=== PATIENT | male | born 1955 | race Caucasian/White ===

== ENCOUNTER 2018-11-27 02:50 | Emergency (ER) | payer OTHER ==
[~2018-11-27] VITALS: Ht 177.8 cm; Wt 85.3 kg
[2018-11-27 02:52] VITALS: Ht 177.8 cm; Wt 85.3 kg
[2018-11-27] MEDS ORDERED: LIPITOR80 MG PO (02:53)
[2018-11-27] MEDS ORDERED: COREG 3.1253.125 MG PO (02:53)
[2018-11-27 03:26] LABS: BASOPHILS 0.6 % (0-2); EOSINOPHILS 5.3 % (0-7); HEMATOCRIT 45.8 % (42.0-54.0); HEMOGLOBIN 15.3 g/dL (13.5-17.5); IMMATURE GRANULOCYTES 0.2 % (0-5); MCH 26.1 pg (26.0-34.0); MCHC 33.4 g/dL (31.0-37.0); MCV 78.2 fL (80.0-100.0); MEAN PLATELET VOLUME 8.8 fL (7.4-10.4); MONOCYTES 9.9 % (2-11); PLATELET COUNT 213 10x3/uL (130-400); RBC 5.86 10x6/uL (4.20-6.10); RDW 15.4 % (11.5-14.5); WBC 6.6 10x3/uL (4.8-10.8)
[2018-11-27 03:33] LABS: INR 1.03 (0.85-1.17)
[2018-11-27 03:34] LABS: APTT 31.6 SECONDS (22.8-39.4)
[2018-11-27 03:38] LABS: ALBUMIN 4.1 g/dL (3.4-5.0); ALKALINE PHOSPHATASE 105 U/L (46-116); ALT (SGPT) 43 U/L (10-68); CALC OSMOLALITY 273 mosm/kg (275-300); CALCIUM 9.1 mg/dL (8.5-10.1); CARBON DIOXIDE 27.2 mmol/L (21.0-32.0); CHLORIDE - SERUM 103 mmol/L (98-107); CREATININE - SERUM 0.9 mg/dL (0.6-1.3); GLUCOSE 93 mg/dL (74-106); POTASSIUM - SERUM 4.2 mmol/L (3.5-5.1); PROTEIN - SERUM 7.3 g/dL (6.4-8.2); SODIUM 138 mmol/L (136-145); UREA NITROGEN 8 mg/dL (7-18); eGFR NON AFRICAN AMERICAN > 90 mL/min (90-120)
[2018-11-27 03:49] LABS: CKMB 1.1 U/L (0.0-3.6); CREATINE KINASE 140 UL (21-232); MAGNESIUM - SERUM 2.1 mg/dL (1.8-2.4)
[2018-11-27 03:51] LABS: TROPONIN-I < 0.017 ng/mL (0.000-0.060)
[2018-11-27 04:26] VITALS: BP 164/92
== END 2018-11-27 04:26 | disposition home or self-care (01) ==
LOC: D.ER 02:50
PROVIDERS: Family Medicine
DX: F41.9 Anxiety disorder, unspecified (principal); I10 Essential (primary) hypertension

== ENCOUNTER 2020-06-06 13:11 | Observation (INO) | payer MEDICAID ==
[~2020-06-06] VITALS: Ht 177.8 cm; Wt 90.9 kg
--- NOTE | ~2020-06-06 | HEMODYNAMI ---
PATIENT:MO ROSARIO MEDICAL RECORD: [id number] : 57 [facility] DATE: 06/06/20 Generatedon:110:52 Patient name: MO ROSARIO Patient #: [id number] SSN: : 1 Date of study: 06/07/2020 Page: Of Hemodynamic Procedure Report Patient Data Patient Demographics Procedure consent was obtained First Name: MO Gender: Male Last Name: MARLENE : 1955 Middle Initial: M Age: 65 year(s) Patient #: [id number] Race: Additional ID: [id number] Contact details [address]: [address] [place] [address] State: [place] City: [place] Zip code: [address] Past Medical History Allergies: No known allergies Admission Admission Data Admission Date: 06/06/2020 Admission Time: 17:22 Admit Source: Other Room #: D.2106 Procedure Procedure Types Cath Procedure Diagnostic Procedure LHC LHC w/Coronaries w/Grafts Sedation Charges Moderate Sedation 25-39 minutes Procedure Description Procedure Date Procedure Date: 06/07/2020 Procedure Start Time: 10:31 Procedure End Time: 10:50 Procedure Staff Name Function Nicola Garcia MD Performing Physician Silke Lainez RT Monitor Génesis Haywood RT Scrub Jermain Juarez RN Nurse Procedure Data Cath Procedure Fluoroscopy Diagnostic fluoroscopy Total fluoroscopy Time: 3.6 time: 3.6 min min Diagnostic fluoroscopy Total fluoroscopy dose: 577 dose: 577 mGy mGy Contrast Material Contrast Material Type Amount (ml) Isovue 300 95 Entry Location Entry Primary Successful Side Size Upsize Upsize Entry Closure Succes sful Closure Location (Fr) 1 (Fr) 2 (Fr) Remarks Device Remarks Femoral Right 5 Fr Exoseal artery Estimated blood loss: 5 ml Diagnostic catheters Device Type Used For End Catheter Placement MULTIPACK JL 4.0 5Fr Left Coronary catheter Angiography DIAGNOSTIC AR MOD 5Fr Multi-vessel Catheter ([id number]) Angiography DIAGNOSTIC LCB 5Fr Multi-vessel catheter ([id number]) Angiography MULTIPACK Pigtail 5 Fr LV Angiography catheter DIAGNOSTIC IM 5Fr Multi-vessel catheter ([id number]) Angiography Procedure Complications No complications Procedure Medications Medication Administration Route Dosage 0.9% NaCl I.V. 100 ml/hr Oxygen etCO2 Nasal cannula 2 l/min Heparin Flush Bag added to field 2 bags (1000units/500ml NS) Lidocaine 2% added to field 20 Versed I.V. 1 mg Fentanyl I.V. 100 mcg Versed I.V. 1 mg Versed I.V. 2 mg Hemodynamics Rest Heart Rate: 65 (bpm) Pressure Samples Time Site Value (mmHg) Purpose Heart Use Rate(bpm) 10:41 LV 113/13,37 Snapshot 74 Gradients Valve Time Site Site Mean SEP/DFP Peak To Heart Use 1 2 (mmHg) (sec/min) Peak Rate (mmHg) (bpm) Aortic 10:42 LV AO 71 Snapshots Pre Cath Intra NCS Post Cath Vital Signs Time Heart Resp SPO2 etCO2 NIBP (mmHg) Rhythm Pain Sedation Rate (ipm) (%) (mmHg) Status Level (bpm) 10:15:59 67 19 99 27.1 137/80(111) NSR 0 (11) 10(A) , No pain 10:20:13 67 18 96 30.9 127/71(109) NSR 0 (11) 10(A) , No pain 10:24:23 68 17 96 30.1 123/72(95) NSR 0 (11) 10(A) , No pain 10:28:31 66 17 96 30.9 121/73(94) NSR 0 (11) 10(A) , No pain 10:32:38 67 16 95 31.7 116/72(94) NSR 0 (11) 10(A) , No pain 10:36:46 66 18 96 33.1 116/70(90) NSR 0 (11) 10(A) , No pain 10:40:54 71 17 95 32.4 115/70(92) NSR 0 (11) 10(A) , No pain 10:45:02 70 17 96 33.9 113/68(89) NSR 0 (11) 10(A) , No pain 10:49:06 66 19 98 32.4 118/73(93) NSR 0 (11) 10(A) , No pain Medications Time Medication Route Dose Verified Delivered Reason Notes Eff ectiveness by by 10:17:27 0.9% NaCl I.V. 100 Jermain Jermain Per ml/hr Ann Juarez physician RN RN 10:17:37 Oxygen etCO2 2 Jermain Jermain for low 02 Nasal l/min Lorigan Lorigan sats cannula RN RN 10:17:49 Heparin Flush added 2 Jermain Jermain used for Bag to bags Lorigan Lorigan procedure (1000units/500ml field RN RN NS) 10:17:58 Lidocaine 2% added 20ml Jermain Jermain for local to vial Lorigan Lorigan anesthetic field RN RN 10:18:06 Versed I.V. 1 mg Jermain Jermain for Lorigan Lorigan sedation RN RN 10:18:15 Fentanyl I.V. 100 Jermain Jermain for mcg Lorigan Lorigan sedation RN RN 10:27:56 Versed I.V. 1 mg Jermain Jermain for Lorigan Lorigan sedation RN RN 10:30:19 Versed I.V. 2 mg Jermain Jermain for Lorigan Lorigan sedation RN clerical receptionist Log Time Note 9:34:23 Informed consent obtained and on chart 9:41:01 Diagnostic Cath Status : Elective 9:55:06 Admit Source: Other 9:55:09 ACC Patient presents with Unstable Angina CCS Anginal Class 2--Slight limitation of ordinary activity. 9:55:12 Procedure Status Urgent Heart Cath (IP). 9:55:14 Time tracking: Regular hours (M-F 7:00 - 5:00) 9:55:19 Plan of Care:Hemodynamics will remain stable., Cardiac rhythm will remain stable., Comfort level will be maintained., Respiratory function will remain adequate., Patient/ family verbilizes understanding of procedure., Procedure tolerated without complication., Recovers from procedure without complications.. 9:55:30 H&P Date Dictated: 06/06/2020 Within 30 days and on chart.. 9:55:35 Jermain Juarez RN sent for patient. Start room use. 10:04:28 Patient received from Med II to CCL 2 Alert and oriented. Tansferred to table in Supine position. 10:04:29 Warm blankets applied, and alisa hugger turned on for patient comfort. 10:04:30 Correct patient and procedure confirmed by team. 10:04:30 ECG and BP/O2 sat monitors applied to patient. 10:14:49 Baseline sample Acquired. 10:14:49 Vital chart was started 10:14:52 Rhythm: sinus rhythm 10::54 Full Disclosure recording started 10:14:54 Pre-procedure instructions explained to patient. 10:14:55 Pre-op teaching completed and patient verbalized understanding. 10:14:56 Family unavailable. 10:14:59 Patient NPO since Midnight. 10:15:00 Is the patient allergic to Iodine/contrast media? No. 10:15:03 Was the patient premedicated? Yes 10:15:04 Is patient on blood thinner?Yes 10:15:07 ACC The patient was administered the following blood thiners within the last 24 hours: ACCLovenox 10:15:09 Patient diabetic? No. 10:15:11 Previous problem with sedation/anesthesia? No ? 10:15:13 Snore? Yes 10:15:14 Sleep apnea? No 10:15:15 Deviated septum? No 10:15:16 Opens mouth fully? Yes 10:15:17 Sticks out tongue? Yes 10:15:24 Airway obstruction? Yes copd asthma 10:15:29 Dentures? Yes in tight 10:15:32 Pre procedure: right dorsailis pedis pulse 2+ Normal; easily identifiable; not easily obliterated 10:15:33 Pre procedure: left dorsailis pedis pulse 2+ Normal; easily identifiable; not easily obliterated 10:15:35 Patient pain scale 0/10 ?. 10:15:41 IV patent on arrival in left forearm with 0.9% NaCl at O. 10:15:43 Lab results completed and on chart. 10:15:48 Right groin area was prepped with chlora-prep and draped in sterile fashion 10:15:48 Alarms reviewed by R. N. 10:15:49 Sharps counted by scrub and verified by R.N. 10:15:49 Physician arrived 10:15:50 --------ALL STOP TIME OUT------ 10:15:50 Final Timeout: patient, procedure, and site verified with staff and physician. All members of the team are in agreement. 10:15:52 Right groin site verified by team. 10:15:57 Fire Safety Assessment: A--An alcohol-based skin anteseptic being used preoperatively., C--Open oxygen or nitrous oxide is being used., D--An ESU, laser, or fiber-optic light is being used. 10:15:59 Physical assessment completed. ASA score P 2 - A patient with mild systemic disease as per Nicola Garcia MD. 10:16:45 1) 90+ Normal kidney functon but urine findings or structural abnormalities or genetic trait point to kidney disease. 10:16:52 Maximum allowable contrast dose (3.7 X eGFR X 0.75)250 ml. 10:17:15 Sedation plan: IV Moderate Sedation Medication:Versed, Fentanyl 10:17:19 Use device set Femoral Dx 10:17:20 ACIST Syringe (12851) opened to sterile field. 10:17:20 Bag Decanter (2002S) opened to sterile field. 10:17:21 Medline Cath Pack ([id number]) opened to sterile field. 10:17:23 ACIST Hand Control (26535) opened to sterile field. 10:17:23 ACIST Manifold (74146) opened to sterile field. 10:17:24 DIAGNOSTIC Multipack 5Fr catheter set ([id number]) opened to sterile field. 10:17:27 0.9% NaCl 100 ml/hr I.V. was administered by Jermain Juarez RN; Per physician; Verbal order read back and verified. 10:17:37 Oxygen 2 l/min etCO2 Nasal cannula was administered by Jermain Juarez RN; for low 02 sats; Verbal order read back and verified. 10:17:47 SHEATH 5FR [place] (BLC066) opened to sterile field. 10:17:47 EMERALD Guide Wire (912-548) opened to sterile field. 10:17:49 Heparin Flush Bag (1000units/500ml NS) 2 bags added to field was administered by Jermain Juarez RN; used for procedure; Verbal order read back and verified. 10:17:51 Tegaderm 4 x 4 (1626W) opened to sterile field. 10:17:58 Lidocaine 2% 20ml vial added to field was administered by Jermain Juarez RN; for local anesthetic; Verbal order read back and verified. 10:18:06 Versed 1 mg I.V. was administered by Jermain Juarez RN; for sedation; Verbal order read back and verified. 10:18:15 Fentanyl 100 mcg I.V. was administered by Jermain Juarez RN; for sedation; Verbal order read back and verified. 10:27:56 Versed 1 mg I.V. was administered by Jermain Juarez RN; for sedation; Verbal order read back and verified. 10:29:09 Procedure started. 10:30:19 Versed 2 mg I.V. was administered by Jermain Juarez RN; for sedation; Verbal order read back and verified. 10:31:25 Local anesthetic to right femoral artery with Lidocaine 2% by Nicola Garcia MD.INITIAL ACCESS ONLY 10:32:53 A 5 Fr sheath was inserted into the Right Femoral artery 10:32:58 A MULTIPACK JL 4.0 5Fr catheter was advanced over the wire and used for Left Coronary Angiography. 10:34:14 LCA angiography performed. 10:34:17 Injector settings: Ml/sec: 3, Volume: 6, 10:35:36 Catheter removed. 10:35:56 A DIAGNOSTIC AR MOD 5Fr Catheter (036011E) was advanced over the wire and used for Multi-vessel Angiography. 10:36:59 RCA angiography performed. 10:37:02 Injector settings: Ml/sec: 3, Volume: 6, 10:37:47 Catheter removed. 10:37:58 A DIAGNOSTIC LCB 5Fr catheter ([id number]) was advanced over the wire and used for Multi-vessel Angiography. 10:39:20 SVG to Circ angiography performed. 10:40:14 Injector settings: Ml/sec: 3, Volume: 6, 10:41:31 Catheter removed. 10:41:40 A MULTIPACK Pigtail 5 Fr catheter was advanced over the wire and used for LV Angiography. 10:42:01 LV hemodynamics recorded. 10:42:04 LV gram done using MAI 10:42:06 Injector settings: Ml/sec: 5, Volume: 15, 10:42:21 EF : 60 % 10:42:41 Catheter removed. 10:43:35 A DIAGNOSTIC IM 5Fr catheter ([id number]) was advanced over the wire and used for Multi-vessel Angiography. 10:44:26 MONAHAN to LAD angiography performed. 10:44:54 Injector settings: Ml/sec: 3, Volume: 6, 10:45:23 Catheter removed. 10:46:44 EXOSEAL 5Fr (EX500) opened to sterile field. 10:47:01 Sheath removed intact; hemostasis achieved with Exoseal to the Right Femoral artery. 10:47:03 Procedure ended.(Physican Out) 10:47:41 Fluoroscopy time 03.60 minutes. 10:47:52 Flurop Dose total: 577 10:47:52 Fluoroscopy dose: 577 mGy 10:47:58 Dose Area Product 55483 mGy/cm. 10:48:02 Contrast amount:Isovue 300 95ml. 10:48:03 Maximum allowable dose exceeded? No. 10:48:04 Sharps counted by scrub and verified by R.N. 10:48:07 Insertion/operative site no bleeding no hematoma. 10:48:09 Post-op/insertion site Right Femoral artery dressed using a 4 x 4 and Tegaderm. 10:48:12 Post Procedure Pulses reassessed and unchanged 10:48:15 Post procedure rhythm: unchanged. 10:48:43 Estimated blood loss: 5 ml 10:48:44 Post procedure instruction explained to patient.Patient verbalizes understanding. 10:48:44 Patient needs reinforcement of post procedure teaching. 10:48:53 Procedure type changed to Cath procedure, Diagnostic procedure, LHC, C w/Coronaries w/Grafts, Sedation Charges, Moderate Sedation 25-39 minutes 10:49:15 Procedure and supply charges have been captured, reviewed, submitted and are correct. 10:49:20 Procedure Complication : No complications 10:49:26 [facility] Findings: MVD- MD will discuss options w/ pt 10:49:27 Operative report dictated upon procedure completion. 10:49:28 See physician's report for complete and final results. 10:49:30 Report given to Med II. 10:50:20 Patient transfered to Med II with Stretcher. 10:50:22 Procedure ended. 10:50:22 Full Disclosure recording stopped 10:50:28 End room use (Document Last) 10:51:39 End room use (Document Last) 10:52:03 End room use (Document Last) 10:52:27 Vital chart was stopped Device Usage Item Name Manufacture Quantity Catalog Hospital Part Current Minimal L ot# / Number Charge Number Stock Stock Serial# Code [facility] 1 80037 564370 829958 158029 20 Syringe Medical (73974) Systems Inc Bag Microtek 1 2001S 967262 51208 657221 5 Decanter Medical Inc. () Medline Medline 1 [id number] 962789 94246 329470 5 Cath Pack ([id number]) ACIST Hand Acist 1 85921 616474 849661 990842 5 Control Medical (67786) Systems Inc ACIST Acist 1 82500 367130 845055 905076 5 Manifold Medical (29080) Systems Inc DIAGNOSTIC Cardinal 1 [id number] 712678 75257 823075 30 Multipack ProQuo 5Fr catheter set ([id number]) SHEATH 5FR Terumo 1 [id number] 690611 689270 724035 5 [place] (HSR249) EMERALD Cardinal 1 502-455 609183 234983 844757 5 Guide Wire [facility] (502455) Tegaderm 4 3M 1 1626W 576528 162198 658295 5 x 4 (1626W) MULTIPACK Cardinal 1 559032 5 JL 4.0 5Fr Health catheter DIAGNOSTIC Cardinal 1 [id number] 082262 474264 830766 15 AR MOD 5Fr Health Catheter (331865C) DIAGNOSTIC Cardinal 1 [id number] 721904 773885 041750 5 LCB 5Fr Health catheter (837972Y) MULTIPACK Cardinal 1 436696 5 Pigtail 5 Health Fr catheter DIAGNOSTIC Cardinal 1 [id number] 913095 437551 016135 5 IM 5Fr Health catheter (951253C) EXOSEAL 5Fr Cardinal 1 EX500 893934 116235 248010 10 (EX500) Health Signature Audit [place] Stage Time Signature Unsigned Intra-Procedure 06/07/2020 Silke Lainez 10:51:39 AM RT(R) Intra-Procedure 06/07/2020 Jermain 10:52:03 AM Ann PINA Intra-Procedure 06/07/2020 Nicola Garcia MD 10:52:25 AM Signatures Performing Physician : Signature : Nicola Garcia MD Date : Time : Monitor : Silke Migel RT Signature : Date : Time : Nurse : Jermain Lorigan Signature : RN Date : Time : [address] [place] [address]
[~2020-06-06 13:11] MED LIST: CARAFATE1 G/10 ML PO; CHRONULAC30 ML PO; COREG 3.1253.125 MG PO; LIPITOR80 MG PO; PROTONIX40 MG PO
[2020-06-06] MEDS ORDERED: SINGULAIR5 MG PO (13:20)
[2020-06-06 14:10] LABS: CALC OSMOLALITY 274 mosm/kg (275-300); CARBON DIOXIDE 27.5 mmol/L (21.0-32.0); CHLORIDE - SERUM 104 mmol/L (98-107); CREATININE - SERUM 1.1 mg/dL (0.6-1.3); GLUCOSE 106 mg/dL (74-106); POTASSIUM - SERUM 4.4 mmol/L (3.5-5.1); SODIUM 137 mmol/L (136-145); UREA NITROGEN 15 mg/dL (7-18); eGFR NON AFRICAN AMERICAN 71 mL/min (90-120)
[2020-06-06 14:11] LABS: BASOPHILS 0.7 % (0-2); EOSINOPHILS 7.9 % (0-7); HEMATOCRIT 45.6 % (42.0-54.0); HEMOGLOBIN 14.9 g/dL (13.5-17.5); IMMATURE GRANULOCYTES 0.1 % (0-5); LYMPHOCYTE ABS# 1.99 10x3/uL (1.32-3.57); LYMPHOCYTES 27.6 % (15-50); MCH 27.9 pg (26.0-34.0); MCHC 32.7 g/dL (31.0-37.0); MCV 85.2 fL (80.0-100.0); MEAN PLATELET VOLUME 8.8 fL (7.4-10.4); MONOCYTES 9.2 % (2-11); NEUTROPHIL ABS# 3.93 10x3/uL (1.78-5.38); NEUTROPHILS 54.5 % (40-80); PLATELET COUNT 266 10x3/uL (130-400); RBC 5.35 10x6/uL (4.20-6.10); RDW 13.3 % (11.5-14.5); WBC 7.2 10x3/uL (4.8-10.8)
[2020-06-06 14:25] LABS: APTT 34.5 SECONDS (22.8-39.4); INR 1.11 (0.85-1.17); PROTIME 13.2 SECONDS (11.6-15.0)
[2020-06-06 14:26] LABS: ALBUMIN 3.8 g/dL (3.4-5.0); ALKALINE PHOSPHATASE 108 U/L (30-120); ALT (SGPT) 50 U/L (10-68); CKMB 0.8 U/L (0.0-3.6); CREATINE KINASE 117 UL (21-232); MAGNESIUM - SERUM 2.3 mg/dL (1.8-2.4); PROTEIN - SERUM 7.2 g/dL (6.4-8.2); TROPONIN-I < 0.017 ng/mL (0.000-0.060)
[2020-06-06 16:04] VITALS: BP 128/75
[2020-06-06 18:03] VITALS: BP 137/86
--- NOTE | 2020-06-06 18:49 | NUR ---
PT ARRIVED AT THIS TIME VIA WHEELCHAIR. PT AAOX3, PLEASANT AND ANSWERS QUESTIONS APPROP. RR EVEN NON LABORED. TELE MONITOR APPLIED. PT ORIENTED TO ROOM, CALL LIGHT AND BATHROOM. CLWR.
[2020-06-06] MEDS ORDERED: ALBUTEROL SULF8.5 GM INH (19:22)
[2020-06-06 20:42] VITALS: BP 148/86
[2020-06-06 23:37] LABS: CKMB 0.7 U/L (0.0-3.6); CREATINE KINASE 98 UL (21-232); TROPONIN-I < 0.017 ng/mL (0.000-0.060)
--- NOTE | 2020-06-07 02:36 | NUR ---
I have reviewed this patient and I concur with the Shift Assessment completed by the Licensed Practical Nurse today this shift.
[2020-06-07 04:00] VITALS: BP 130/79
[2020-06-07 04:41] LABS: BASOPHILS 0.6 % (0-2); EOSINOPHILS 8.8 % (0-7); HEMATOCRIT 43.4 % (42.0-54.0); HEMOGLOBIN 14.1 g/dL (13.5-17.5); IMMATURE GRANULOCYTES 0.2 % (0-5); LYMPHOCYTE ABS# 2.37 10x3/uL (1.32-3.57); LYMPHOCYTES 36.5 % (15-50); MCH 27.6 pg (26.0-34.0); MCHC 32.5 g/dL (31.0-37.0); MCV 84.9 fL (80.0-100.0); MONOCYTES 11.1 % (2-11); NEUTROPHIL ABS# 2.78 10x3/uL (1.78-5.38); NEUTROPHILS 42.8 % (40-80); PLATELET COUNT 240 10x3/uL (130-400); RBC 5.11 10x6/uL (4.20-6.10); RDW 13.3 % (11.5-14.5); WBC 6.5 10x3/uL (4.8-10.8)
[2020-06-07 05:06] LABS: ALBUMIN 3.3 g/dL (3.4-5.0); ALKALINE PHOSPHATASE 84 U/L (30-120); ALT (SGPT) 43 U/L (10-68); BILIRUBIN - TOTAL 0.77 mg/dL (0.2-1.3); CALC OSMOLALITY 276 mosm/kg (275-300); CALCIUM 8.4 mg/dL (8.5-10.1); CARBON DIOXIDE 28.8 mmol/L (21.0-32.0); CHLORIDE - SERUM 105 mmol/L (98-107); CKMB 1.4 U/L (0.0-3.6); CREATINE KINASE 150 UL (21-232); CREATININE - SERUM 0.9 mg/dL (0.6-1.3); GLUCOSE 95 mg/dL (74-106); MAGNESIUM - SERUM 2.1 mg/dL (1.8-2.4); PROTEIN - SERUM 6.3 g/dL (6.4-8.2); SODIUM 138 mmol/L (136-145); TROPONIN-I < 0.017 ng/mL (0.000-0.060); UREA NITROGEN 14 mg/dL (7-18); eGFR NON AFRICAN AMERICAN 90 mL/min (90-120)
[2020-06-07 08:16] VITALS: Ht 177.8 cm; Wt 90.9 kg
[2020-06-07 08:32] VITALS: BP 135/78
[2020-06-07 08:53] LABS: CHOL - HDL RATIO 2.7 ratio (2.3-4.9); LDL-HDL RATIO 1.1 ratio (1.5-3.5)
[2020-06-07 11:00] VITALS: BP 126/72
[2020-06-07 11:40] LABS: CKMB 0.5 U/L (0.0-3.6); CREATINE KINASE 81 UL (21-232); TROPONIN-I < 0.017 ng/mL (0.000-0.060)
--- NOTE | 2020-06-07 16:15 | NUR ---
1115- PT BACK TO ROOM FROM BISQUE GRADER, DROWSY/ALERT, CATH SITE TO RIGHT GROIN C/D/I NO HEMATOMA. PPP. CAN WALK IN 2 HOUR PER BISQUE GRADER D/T NO INTERVENTION DONE. VITALS TAKEN Q15MIN. 1430- PT UP TO RESTROOM THEN TO RECLINER AT BEDSIDE. RIGHT GROIN REMAINS UNCHANGED. AWAITING DISCHARGE ORDERS. 1615-REVIEWED DISCHARGE INSTRUCTIONS WITH PT. VERBALIZES UNDERSTANDING.
--- NOTE | 2020-06-07 19:13 | MORECARE ---
CASE MANAGEMENT DISCHARGE SUMMARY PATIENT: MO ROSARIO UNIT: [id number] ADM DATE: 06/06/20 AGE: 65 : 57 SEX: M ROOM/BED: D.2106 AUTHOR: CHAN COOL PHYSICIAN: REFERRING PHYSICIAN: ADELA HARGROVE MD DATE OF SERVICE: 06/07/20 Discharge Plan Patient Name: MO ROSARIO [facility] [place] : 1955 Planned Disposition: Anticipated Discharge Date: Discharge Date: 06/07/2020 Expected LOS: Initial Reviewer: [email or web address] Initial Review Date: 06/06/2020 Generated: 06/07/20 8:12 pm Patient Name: MO ROSARIO Page [phone] at 1913 All edits/amendments must be made on the electronic document DICTATION DATE: 06/07/201911 FULL STACK DEVELOPER: REJI 06/07/201911 RPT#: [id number] DC DATE:06/07/20 STATUS: DIS IN [facility] [address] [facility] [place] [address] END OF REPORT
== END 2020-06-07 16:00 | disposition home or self-care (01) ==
LOC: D.ER 13:11 → D.EDHOLD 17:22 → D.M2 17:22 → OBSVTIME 17:22 → D.M2 17:48
PROVIDERS: Family Medicine; Internal Medicine Cardiovascular Disease; ADMIT Family Medicine Adult Medicine; ATTEND Family Medicine Adult Medicine
DX: I25.110 Atherosclerotic heart disease of native coronary artery with unstable angina pectoris (principal); J44.9 Chronic obstructive pulmonary disease, unspecified; I10 Essential (primary) hypertension; F41.9 Anxiety disorder, unspecified; Z72.0 Tobacco use

== ENCOUNTER 2020-07-05 15:48 | Emergency (ER) | payer OTHER ==
[~2020-07-05] VITALS: Ht 177.8 cm; Wt 86.4 kg
[~2020-07-05 15:48] MED LIST changes: +ALBUTEROL SULF8.5 GM INH; +SINGULAIR5 MG PO
[2020-07-05 15:59] VITALS: BP 126/88; Ht 177.8 cm; Wt 86.4 kg
== END 2020-07-05 17:30 | disposition home or self-care (01) ==
LOC: D.ER 15:48
DX: K13.79 Other lesions of oral mucosa (principal); I10 Essential (primary) hypertension; J44.9 Chronic obstructive pulmonary disease, unspecified